=== PATIENT | male | born 1970 | race Caucasian/White ===

== ENCOUNTER 2017-04-15 16:43 | Emergency (ER) | payer MEDICARE, MEDICAID ==
--- NOTE | 2017-04-15 18:39 | ED ---
GI/ HPI - HPI Summary HPI Summary: 46M presents with inability to self-cath today. He states has renal issues so has nephrostomy tube and has to self cath. has been self cath for years. He was able to do it today this morning but this afternoon he was unable to do so and there was blood when he tried. He denies any uti symptoms such as dysuria, frequency, urgency. no abdominal pain, nausea, vomiting, or fever. has urologist at [place]. no flank pain. is not on blood thinners. He denies any history of kidney stones or having a suprapubic placed. - History of Current Complaint Chief Complaint: EDUrogenitalProblems Time Seen by Provider: 04/15/17 17:27 Stated Complaint: UNABLE TO INSERT CATHETER Pain Intensity: 0 - Additional Pertinent History Primary Care Physician: [id number] - Allergy/Home Medications Allergies/Adverse Reactions: Allergies Allergy/AdvReac Type Severity Reaction Status Date / Time Latex Allergy Intermediate Rash Verified 04/15/17 17:03 Norfloxacin Allergy Unknown Unknown Verified 04/15/17 17:03 Reaction Details Quinolones Allergy Unknown Unknown Verified 04/15/17 17:03 Reaction Details Sulfa Drugs Allergy Unknown Unknown Verified 04/15/17 17:03 Reaction Details PMH/Surg Hx/FS Hx/Imm Hx Endocrine/Hematology History: Denies: Hx Anticoagulant Therapy, Hx Diabetes, Hx Thyroid Disease, Hx Anemia Cardiovascular History: Reports: Hx Hypercholesterolemia, Hx Hypertension Denies: Hx Aneurysm, Hx Angina, Hx Angioplasty, Hx Auto Implanted Cardiovert Defib, Hx Cardiac Arrest, Hx Cardiomegaly, Hx Congenital Heart Disease, Hx Congestive Heart Failure, Hx Coronary Artery Disease, Hx Deep Vein Thrombosis, Hx Pacemaker/ICD, Other Cardiovascular Problems/Disorders Respiratory History: Reports: Hx Sleep Apnea Denies: Hx Asthma, Hx Chronic Obstructive Pulmonary Disease (COPD), Other Respiratory Problems/Disorders GI History: Denies: Hx Cirrhosis, Hx Crohn's Disease, Hx Diverticulosis, Hx Gall Bladder Disease, Hx Gastrointestinal Bleed, Hx Ulcer History: Reports: Hx Acute Renal Failure, Hx Chronic Renal Failure, Hx Renal Disease, Other Problems/Disorders - Right kidney nephrostomy, neurogenic bladder Denies: Hx Benign Prostatic Hyperplasia, Hx Dialysis, Hx Kidney Infection, Hx Kidney Stones Musculoskeletal History: Reports: Hx Back Problems - occassional back pain related to spinabifida repair Denies: Hx Arthritis, Hx Congenital Bone Abnormalities, Hx Fibromyalgia Sensory History: Denies: Hx Cataracts, Hx Contacts or Glasses, Hx Eye Injury, Hx Eye Prosthesis, Hx Glaucoma, Hx Legally Blind, Hx Macular Degeneration, Hx Vision Problem, Hx Deafness, Hx Hearing Aid, Hx Hearing Problem, Other Sensory Impairments Opthamlomology History: Denies: Hx Cataracts, Hx Contacts or Glasses, Hx Eye Injury, Hx Eye Prosthesis, Hx Glaucoma, Hx Legally Blind, Hx Macular Degeneration, Hx Vision Problem, Other Sensory Impairments Neurological History: Reports: Hx Developmental Delay, Hx Headaches, Hx Nerve Disease - spina bifida, Other Neuro Impairments/Disorders - MR, shunt, neurogenic bladder Denies: Hx Dementia, Hx Migraine, Hx Seizures, Hx Spinal Cord Injury, Hx Transient Ischemic Attacks (TIA) Psychiatric History: Reports: Hx Depression, Hx Community Mental Health Tx Denies: Hx Anxiety, Hx Attention Deficit Hyperactivity Disorder, Hx Eating Disorder, Hx Panic Disorder, Hx Post Traumatic Stress Disorder, Hx Inpatient Treatment, Hx Schizophrenia, Hx Bipolar Disorder, Hx Substance Abuse - Surgical History Surgery Procedure, Year, and Place: spina bifida repair as a child. nephrostomy. bladder sx Hx Anesthesia Reactions: No - Immunization History Date of Tetanus Vaccine: UTD Date of Influenza Vaccine: UTD Infectious Disease History: No Infectious Disease History: Denies: Hx Clostridium Difficile, Hx Hepatitis, Hx Human Immunodeficiency Virus (HIV), Hx of Known/Suspected MRSA, Hx Shingles, Hx Tuberculosis, History Other Infectious Disease, Traveled Outside the [place] in Last 30 Days - Family History Known Family History: Negative: Blood Disorder - Social History Alcohol Use: None Substance Use Type: Reports: None Hx Tobacco Use: No Smoking Status (MU): Never Smoked Tobacco Review of Systems Negative: Fever Negative: Chest Pain Negative: Shortness Of Breath Positive: other - urinary retention. Negative: dysuria, frequency All Other Systems Reviewed And Are Negative: Yes Physical Exam Triage Information Reviewed: Yes Vital Signs On Initial Exam: Initial Vitals Temp Pulse Resp BP Pulse Ox 98.5 F 97 16 135/92 96 04/15/17 17:03 04/15/17 17:03 04/15/17 17:03 04/15/17 17:03 04/15/17 17:03 Vital Signs Reviewed: Yes Appearance: Positive: Well-Appearing Skin: Positive: Warm, Dry Head/Face: Positive: Normal Head/Face Inspection Eyes: Positive: Normal, Conjunctiva Clear Respiratory/Lung Sounds: Positive: Clear to Auscultation, Breath Sounds Present Cardiovascular: Positive: Normal, RRR Abdomen Description: Positive: Nontender, Soft, Other: - nephrostomy tube left Bowel Sounds: Positive: Present Musculoskeletal: Positive: Normal Neurological: Positive: Normal Psychiatric: Positive: Normal - Kaylee Coma Scale Coma Scale Total: 15 Diagnostics - Vital Signs Vital Signs Temp Pulse Resp BP Pulse Ox 04/15/17 17:03 98.5 F 97 16 135/92 96 - Laboratory Lab Statement: Any lab studies that have been ordered have been reviewed, and results considered in the medical decision making process. GIGU Course/Dx - Course Course Of Treatment: 46M presents with inability to self-cath today. He states has renal issues so has nephrostomy tube and has to self cath. has been self cath for years. He was able to do it today this morning but this afternoon he was unable to do so and there was blood when he tried. He denies any uti symptoms such as dysuria, frequency, urgency. no abdominal pain, nausea, vomiting, or fever. has urologist at [place]. no flank pain. is not on blood thinners. on exam abdomen nontender. has left nephrostomy tube. 14 coude was placed. will have follow up with urology to have cath removed. patient understand and agrees with plan. after patient left urine came back with infection. will place on macrobid bid x7 days due to allergies. spoke with home of patient and they understand plan. - Diagnoses Differential Diagnoses - Male: Sepsis, Urinary Tract Infection, Other - urinary retention Provider Diagnoses: Acute urinary retention, UTI (urinary tract infection) Discharge - Discharge Plan Condition: Good Disposition: HOME Prescriptions: Nitrofurantoin Monohyd Macro [Macrobid] 100 mg PO BID #14 cap Patient Education Materials: Urinary Retention in Men (ED) Referrals: Sanjiv Jarvis MD [Primary Care Provider] - Additional Instructions: Catheter will likely need to be remained in for a week Follow up with your urologist for continued care. If you do not have a urologist a referral was given Return to ED if develop any new or worsening symptoms
[2017-04-15 19:09] VITALS: BP 133/89
[2017-04-15 20:14] LABS: Urine Appearance Cloudy; Urine Blood 3+ (Negative); Urine Color Yellow; Urine Ketones Negative (Negative); Urine Protein 1+(30 mg/dL) (Negative); Urine Urobilinogen Negative (Negative)
--- NOTE | 2017-04-17 18:35 | ED ---
Progress - Progress Note Progress Note: Pt's prelim urine reveals 75-100,000 morganella morganii. Final sens pending. Course/Dx - Course Course Of Treatment: 46M presents with inability to self-cath today. He states has renal issues so has nephrostomy tube and has to self cath. has been self cath for years. He was able to do it today this morning but this afternoon he was unable to do so and there was blood when he tried. He denies any uti symptoms such as dysuria, frequency, urgency. no abdominal pain, nausea, vomiting, or fever. has urologist at [place]. no flank pain. is not on blood thinners. on exam abdomen nontender. has left nephrostomy tube. 14 coude was placed. will have follow up with urology to have cath removed. patient understand and agrees with plan. after patient left urine came back with infection. will place on macrobid bid x7 days due to allergies. spoke with home of patient and they understand plan. - Diagnoses Provider Diagnoses: Acute urinary retention, UTI (urinary tract infection)
--- NOTE | 2017-04-18 08:50 | ED ---
Progress - Progress Note Progress Note: Pt's prelim urine reveals 75-100,000 morganella morganii. Final sens pending. UPDATE: pt was started on nitrofurantoin which is not effective against organism. Quinolones and bactrim are effective however these are on his allergy. Cephalosporins appear to be effective and so he may start keflex 500mg PO BID x 7 days. Spoke w/ Cheli Kent, residence counselor, at [facility]. He agrees he will stop nitrofurantoin as of tonight because morning med was already provided. He reports they have keflex 500mg available for this pt as needed as he takes it if he has a temp of 99F as well as before catheter changes. Cheli agrees to notify nursing pt may receive his first dose of keflex 500mg this morning and continue to take as directed above. He will also relay that pt needs f/u w/ PCP before completing course of tx. They will also return to ED if danger s/sx present in the meantime. Course/Dx - Course Course Of Treatment: 46M presents with inability to self-cath today. He states has renal issues so has nephrostomy tube and has to self cath. has been self cath for years. He was able to do it today this morning but this afternoon he was unable to do so and there was blood when he tried. He denies any uti symptoms such as dysuria, frequency, urgency. no abdominal pain, nausea, vomiting, or fever. has urologist at [place]. no flank pain. is not on blood thinners. on exam abdomen nontender. has left nephrostomy tube. 14 coude was placed. will have follow up with urology to have cath removed. patient understand and agrees with plan. after patient left urine came back with infection. will place on macrobid bid x7 days due to allergies. spoke with home of patient and they understand plan. - Diagnoses Provider Diagnoses: Acute urinary retention, UTI (urinary tract infection)
== END 2017-04-15 19:08 | disposition home or self-care (01) ==
LOC: ED 16:43
DX: N39.0 Urinary tract infection, site not specified (principal); R33.9 Retention of urine, unspecified
CPT/HCPCS: 81003; 81015; 87077; 87086; 87186; 99282

== ENCOUNTER 2019-07-28 10:00 | Observation (INO) ==
[2019-07-28] MEDS ORDERED: NS 0.9% 1000 ml BAG 1,000 ML IV ONE ×3 (11:30→15:17)
[2019-07-28] MEDS ORDERED: Piperacillin/Tazobac (*) 3.375 GM BAG ONE (13:25)
[2019-07-28] MEDS ORDERED: Piperacillin/Tazobac ADVAN(*) 3.375 GM in NS 0.9% 100 ml BAG 100 ML IVPB ONE (13:35)
[2019-07-28] MEDS ORDERED: Senna TAB 8.6 mg TAB PO PRN (14:40)
[2019-07-28] MEDS ORDERED: Iodixanol 320 (CONTRAST) 100 ML SDV IV ONE (19:51)
[2019-07-28 21:22] LABS: Hemoglobin 15.1 g/dL (14.0-18.0); Red Blood Count 4.77 10^6 /uL (4.18-5.48); White Blood Count 16.2 10^3/uL (3.5-10.8)
[2019-07-28 21:23] LABS: ABS Basophils 0.1 10^3/ul (0-0.2); ABS Lymphocytes 0.8 10^3/ul (1.0-4.8); ABS Monocytes 1.2 10^3/ul (0-0.8); Eosinophil % 0.2 %; Hematocrit 44 % (42-52); Lymphocyte % 5.2 %; Mean Corpuscular HGB Conc 35 g/dL (31-36); Mean Corpuscular Hemoglobin 32 pg (27-31); Mean Corpuscular Volume 92 fL (80-94); Mean Platelet Volume 9.2 fL (7.4-10.4); Platelet Count 213 10^3/uL (150-450); Red Cell Distribution Width 14 % (10-15)
[2019-07-28 21:24] LABS: Albumin 4.3 g/dL (3.2-5.2); Albumin/Globulin Ratio 1.4 (1-3); BUN/Creatinine Ratio 10.6 (8-20); Calcium 9.3 mg/dL (8.6-10.3); EGFR African American 52.5 (>60); EGFR Non-African American 43.4 (>60); Globulin 3.1 g/dL (2-4); Potassium 4.4 mmol/L (3.5-5.0); Total Protein 7.4 g/dL (6.4-8.9)
[2019-07-28 21:25] LABS: Total Bilirubin 0.9 mg/dL (0.2-1.0)
[2019-07-28 22:02] LABS: Urine Appearance Turbid; Urine Blood 1+ (Negative); Urine Color Yellow; Urine Ketones Negative (Negative); Urine Nitrite Negative (Negative); Urine Protein 1+(30 mg/dL) (Negative); Urine Urobilinogen Negative (Negative)
[2019-07-28 22:03] LABS: Urine Bacteria 2+ (Absent); Urine Bilirubin Negative (Negative); Urine Glucose Negative (Negative); Urine Red Blood Cell 1+(3-5/hpf) (Absent); Urine White Blood Cell 3+(>20/hpf) (Absent)
[2019-07-28] MEDS ORDERED: Zosyn per Pharmacy NOTE FOLLOW UP PRN (23:34)
[2019-07-28] MEDS: NS 0.9% 1000 ml BAG 1,000 ML IV SCH (23:59)
[2019-07-29 05:28] LABS: Albumin 3.6 g/dL (3.2-5.2); Albumin/Globulin Ratio 1.3 (1-3); BUN/Creatinine Ratio 11.1 (8-20); Calcium 8.4 mg/dL (8.6-10.3); EGFR African American 63.6 (>60); EGFR Non-African American 52.6 (>60); Globulin 2.7 g/dL (2-4); Potassium 3.5 mmol/L (3.5-5.0); Total Bilirubin 0.9 mg/dL (0.2-1.0); Total Protein 6.3 g/dL (6.4-8.9)
[2019-07-29 05:56] LABS: ABS Basophils 0.1 10^3/ul (0-0.2); ABS Eosinophils 0.1 10^3/ul (0-0.6); ABS Lymphocytes 1.3 10^3/ul (1.0-4.8); Eosinophil % 0.6 %; Hematocrit 40 % (42-52); Hemoglobin 14.1 g/dL (14.0-18.0); Lymphocyte % 9.3 %; Mean Corpuscular HGB Conc 35 g/dL (31-36); Mean Corpuscular Hemoglobin 32 pg (27-31); Mean Corpuscular Volume 92 fL (80-94); Mean Platelet Volume 8.9 fL (7.4-10.4); Platelet Count 179 10^3/uL (150-450); Red Blood Count 4.36 10^6 /uL (4.18-5.48); Red Cell Distribution Width 14 % (10-15)
[2019-07-29] MEDS: ZOSYN 3.375 GM Q8H per EXTENDED INFUSION IV SCH ×3 (08:55→16:05)
[2019-07-29 11:40] LABS: Magnesium 1.8 mg/dL (1.9-2.7)
[2019-07-29] MEDS ORDERED: Magnesium Sulfate IV 1GM/100ML 1 GM/100 ML BAG IV ONE (11:49)
[2019-07-29] MEDS ORDERED: NS 0.9% 1000 ml BAG 1,000 ML IV ONE (12:12)
[2019-07-29] MEDS: Enoxaparin 40 MG/0.4 ML SYR(*) SUBCUT SCH (13:47)
[2019-07-29] MEDS: NS 0.9% 1000 ml BAG 1,000 ML IV SCH (13:47)
[2019-07-29] MEDS: CMC:Simvastatin 10 mg TAB (NF) PO SCH (20:46)
[2019-07-29] MEDS ORDERED: Potassium Citrate 10 meq T(NF) PO SCH (21:00)
[2019-07-30] MEDS: ZOSYN 3.375 GM Q8H per EXTENDED INFUSION IV SCH ×3 (00:33→16:10)
[2019-07-30] MEDS: Enoxaparin 40 MG/0.4 ML SYR(*) SUBCUT SCH (12:28)
[2019-07-30] MEDS: CMC:Simvastatin 10 mg TAB (NF) PO SCH (20:13)
[2019-07-31] MEDS: ZOSYN 3.375 GM Q8H per EXTENDED INFUSION IV SCH ×2 (00:03→08:03)
[2019-07-31 07:28] LABS: Hematocrit 37 % (42-52); Hemoglobin 12.7 g/dL (14.0-18.0); Mean Corpuscular HGB Conc 35 g/dL (31-36); Mean Corpuscular Hemoglobin 32 pg (27-31); Mean Corpuscular Volume 92 fL (80-94); Mean Platelet Volume 9.3 fL (7.4-10.4); Platelet Count 203 10^3/uL (150-450); Red Blood Count 4.02 10^6 /uL (4.18-5.48); Red Cell Distribution Width 14 % (10-15); White Blood Count 5.4 10^3/uL (3.5-10.8)
[2019-07-31 07:49] LABS: BUN/Creatinine Ratio 8.3 (8-20); Calcium 8.6 mg/dL (8.6-10.3); EGFR African American 63.1 (>60); EGFR Non-African American 52.2 (>60); Potassium 3.8 mmol/L (3.5-5.0)
[2019-07-31 12:00] VITALS: BP 125/74
== END 2019-07-31 15:25 | disposition home or self-care (01) | DRG 872 ==
LOC: ED 17:11 → MEDTELE 17:11 → OBSVTOIN 21:33 → INTOOBSV 21:33
PROVIDERS: ADMIT Hospitalist; ATTEND Internal Medicine

== ENCOUNTER 2020-09-05 18:41 | Observation (INO) ==
[2020-09-05 21:20] LABS: Urine Appearance Turbid; Urine Bilirubin Negative (Negative); Urine Blood 1+ (Negative); Urine Color Yellow; Urine Glucose Negative (Negative); Urine Ketones Negative (Negative); Urine Nitrite Negative (Negative); Urine Protein 3+(>=500 mg/dL) (Negative); Urine Specific Gravity 1.011 (1.002-1.030); Urine Urobilinogen Negative (Negative)
[2020-09-05 21:23] LABS: Urine Bacteria 1+ (Absent); Urine Red Blood Cell 2+(6-10/hpf) (Absent); Urine Squamous Epithelial Cell Present (Absent); Urine White Blood Cell 2+(11-20/hpf) (Absent)
[2020-09-05] MEDS ORDERED: cefTRIAXone 1 gm/50 mL NS BAG 1 GM/50 ML BAG IV ONE (21:45)
[2020-09-05 23:48] LABS: ABS Basophils 0.1 10^3/ul (0-0.2); ABS Eosinophils 0.2 10^3/ul (0-0.6); ABS Lymphocytes 1.6 10^3/ul (1.0-4.8); ABS Monocytes 0.7 10^3/ul (0-0.8); ABS Neutrophils 5.6 10^3/ul (1.5-7.7); Eosinophil % 2.3 %; Hematocrit 46 % (42-52); Hemoglobin 15.5 g/dL (14.0-18.0); Mean Corpuscular HGB Conc 34 g/dL (31-36); Mean Corpuscular Hemoglobin 32 pg (27-31); Mean Corpuscular Volume 95 fL (80-94); Mean Platelet Volume 9.2 fL (7.4-10.4); Platelet Count 228 10^3/uL (150-450); Red Blood Count 4.82 10^6 /uL (4.18-5.48); Red Cell Distribution Width 14 % (10-15); White Blood Count 8.2 10^3/uL (3.5-10.8)
[2020-09-05 23:59] LABS: Albumin 4.1 g/dL (3.2-5.2); Calcium 9.1 mg/dL (8.6-10.3); Total Bilirubin 0.6 mg/dL (0.2-1.0)
[2020-09-06 00:05] LABS: Albumin/Globulin Ratio 1.4 (1-3); C Reactive Protein 2.73 mg/L (<8.01); EGFR African American 49.3 (>60); EGFR Non-African American 40.7 (>60); Total Protein 7.1 g/dL (6.4-8.9)
[2020-09-06] MEDS: NS 0.9% 1000 ml BAG 1,000 ML IV SCH ×2 (00:07→03:23)
[2020-09-06] MEDS ORDERED: Magnesium Hydroxide LIQ 30 ML UDC PO PRN (04:03)
[2020-09-06] MEDS ORDERED: Enoxaparin 40 MG/0.4 ML SYR SUBCUT SCH (05:00)
[2020-09-06 11:18] VITALS: BP 119/77
[2020-09-06] MEDS ORDERED: cefTRIAXone 1 gm/50 mL NS BAG 1 GM/50 ML BAG IVPB SCH (21:00)
== END 2020-09-06 13:22 | disposition home or self-care (01) ==
LOC: ED 18:41 → MEDTELE 09-06 04:03 → INTOOBSV 09-06 04:03 → MEDTELE 09-06 07:58
PROVIDERS: ADMIT Internal Medicine; ATTEND Student in an Organized Health Care Education/Training Program

== ENCOUNTER 2023-10-09 20:52 | Inpatient (IN) ==
[2023-10-09 21:40] LABS: ABS Basophils 0.1 10^3/uL (0.0-0.1); ABS Lymphocytes 0.5 10^3/uL (1.0-4.8); ABS Monocytes 0.9 10^3/uL (0.0-1.1); ABS Neutrophils 11.4 10^3/uL (1.5-7.6); Eosinophil % 0.1 %; Hematocrit 39.1 % (38-53); Hemoglobin 13.3 g/dL (13.2-16.3); Lymphocyte % 4.1 %; Mean Corpuscular Hemoglobin 31.4 pg (27-33); Mean Corpuscular Hgb Conc 33.9 g/dL (31-36); Mean Corpuscular Volume 92.5 fL (80-97); Mean Platelet Volume 9.1 fL (7.5-11.2); Platelet Count 145 10^3/uL (150-450); Red Blood Count 4.23 10^6/uL (4.06-5.63); Red Cell Distribution Width 15.3 % (12-17); White Blood Count 12.9 10^3/uL (3.6-10.2)
[2023-10-09] MEDS: Lactated Ringers 1000 ml BAG 1,000 ML IV ONE (21:44)
[2023-10-09 21:54] LABS: Urine Appearance Extra Turbid; Urine Bilirubin Negative (Negative); Urine Blood 2+ (Negative); Urine Glucose Negative (Negative); Urine Ketones Negative (Negative); Urine Nitrite 2+ (Negative); Urine Protein 1+ (>=30 mg/dL) (Negative); Urine Urobilinogen Negative (Negative); Urine pH 6.5 (5.0-8.0)
[2023-10-09] MEDS: Piperacillin/Tazobac 3.375 BAG 3.375 GM/100 ML BAG IV ONE (21:54)
[2023-10-09] MEDS: Lactated Ringers SEPSIS* BAG 2,400 ML IV ONE (21:55)
[2023-10-09 22:00] LABS: Urine Bacteria 1+ /HPF (Absent); Urine Red Blood Cell 3+(>10/hpf) /HPF (0-Trace); Urine Squamous Epithelial Cell Present /HPF (Absent); Urine White Blood Cell 3+(>20/hpf) /HPF (0-Trace)
[2023-10-09 22:01] LABS: INR 1.29 (0.83-1.13)
[2023-10-09 22:03] LABS: Urine Color Yellow
[2023-10-09 22:25] LABS: Albumin 4.1 g/dL (3.2-5.2); Albumin/Globulin Ratio 1.6 (1-3); C Reactive Protein 172.9 mg/L (<8.01); Calcium 8.9 mg/dL (8.6-10.3); Globulin 2.5 g/dL (2-4); Potassium 4.1 mmol/L (3.5-5.0); Total Protein 6.6 g/dL (6.4-8.9); eGFR CKD-EPI 39.7 (>60)
[2023-10-09 22:31] LABS: Urine Appearance Extra Turbid; Urine Bilirubin Negative (Negative); Urine Blood 2+ (Negative); Urine Glucose Negative (Negative); Urine Ketones Negative (Negative); Urine Nitrite Negative (Negative); Urine Protein 2+ (>=100 mg/dL) (Negative); Urine Specific Gravity 1.009 (1.002-1.030); Urine Urobilinogen Negative (Negative); Urine pH 7.5 (5.0-8.0)
[2023-10-09 22:42] LABS: Urine Bacteria 3+ /HPF (Absent); Urine Red Blood Cell 3+(>10/hpf) /HPF (0-Trace); Urine White Blood Cell 3+(>20/hpf) /HPF (0-Trace)
[2023-10-09 22:43] LABS: Urine Color Yellow
[2023-10-09] MEDS: Vancomycin 1,500 MG in NS 0.9% 250 ml 250 ML IVPB ONE (22:47)
[2023-10-09 22:49] LABS: High Sensitivity Troponin 1 Hr 9 pg/mL (<20)
[2023-10-09] MEDS: Iodixanol (CONTRAST) 320 MG/ML 100 ML SDV IV ONE (23:14)
[2023-10-10] MEDS: ZOSYN 3.375 GM Q8H per EXTENDED INFUSION IV SCH (05:23)
[2023-10-10] MEDS ORDERED: Zosyn per Pharmacy NOTE FOLLOW UP SCH (06:00)
[2023-10-10 06:17] LABS: ABS Lymphocytes 0.7 10^3/uL (1.0-4.8); ABS Monocytes 0.8 10^3/uL (0.0-1.1); ABS Neutrophils 10.7 10^3/uL (1.5-7.6); ABS Nucleated RBC 0.01 10^3/ul; Eosinophil % 0.1 %; Hematocrit 36.5 % (38-53); Hemoglobin 12.6 g/dL (13.2-16.3); Lymphocyte % 6.1 %; Mean Corpuscular Hgb Conc 34.5 g/dL (31-36); Mean Corpuscular Volume 92.7 fL (80-97); Mean Platelet Volume 9.1 fL (7.5-11.2); Platelet Count 112 10^3/uL (150-450); Red Blood Count 3.94 10^6/uL (4.06-5.63); White Blood Count 12.3 10^3/uL (3.6-10.2)
[2023-10-10 06:47] LABS: Calcium 8.5 mg/dL (8.6-10.3); Creatinine, Serum 1.91 mg/dL (0.67-1.17); Magnesium 1.7 mg/dL (1.9-2.7); eGFR CKD-EPI 41.9 (>60)
[2023-10-10] MEDS: Magnesium Sulfate 2 gm BAG 2 GM/50 ML BAG IVPB ONE (09:19)
[2023-10-10] MEDS ORDERED: cefTRIAXone 2 gm/50 mL D5W 2 GM/50 ML BAG IV SCH (10:00)
[2023-10-10] MEDS: cefTRIAXone 2 gm/50 mL D5W 2 GM/50 ML BAG IV SCH (11:00)
[2023-10-10] MEDS: Lactated Ringers 1000 ml BAG 1,000 ML IV SCH (18:18)
[2023-10-10] MEDS: Heparin 5000 UNITS/ML 1 mL VIAL SUBCUT SCH (21:32)
[2023-10-11] MEDS: Acetaminophen IV 1 GM/100ML 1,000 MG/100 ML BAG IV ONE (00:22)
[2023-10-11 06:26] LABS: ABS Eosinophils 0.1 10^3/uL (0.0-0.5); ABS Lymphocytes 0.5 10^3/uL (1.0-4.8); ABS Monocytes 0.6 10^3/uL (0.0-1.1); ABS Neutrophils 8.1 10^3/uL (1.5-7.6); Hematocrit 37.8 % (38-53); Hemoglobin 12.8 g/dL (13.2-16.3); Lymphocyte % 5.3 %; Mean Corpuscular Hemoglobin 31.2 pg (27-33); Mean Corpuscular Hgb Conc 33.7 g/dL (31-36); Mean Corpuscular Volume 92.7 fL (80-97); Mean Platelet Volume 9.2 fL (7.5-11.2); Platelet Count 111 10^3/uL (150-450); Red Blood Count 4.08 10^6/uL (4.06-5.63); Red Cell Distribution Width 15.3 % (12-17); White Blood Count 9.3 10^3/uL (3.6-10.2)
[2023-10-11 07:09] LABS: Calcium 8.1 mg/dL (8.6-10.3); Creatinine, Serum 1.82 mg/dL (0.67-1.17); Magnesium 1.9 mg/dL (1.9-2.7); Potassium 3.8 mmol/L (3.5-5.0); eGFR CKD-EPI 44.4 (>60)
[2023-10-12 05:33] LABS: ABS Eosinophils 0.2 10^3/uL (0.0-0.5); ABS Lymphocytes 1.1 10^3/uL (1.0-4.8); ABS Monocytes 0.8 10^3/uL (0.0-1.1); ABS Neutrophils 5.3 10^3/uL (1.5-7.6); Hematocrit 37.3 % (38-53); Hemoglobin 12.8 g/dL (13.2-16.3); Lymphocyte % 14.2 %; Mean Corpuscular Hemoglobin 31.8 pg (27-33); Mean Corpuscular Hgb Conc 34.2 g/dL (31-36); Mean Corpuscular Volume 92.9 fL (80-97); Platelet Count 126 10^3/uL (150-450); Red Blood Count 4.02 10^6/uL (4.06-5.63); Red Cell Distribution Width 15.3 % (12-17); White Blood Count 7.4 10^3/uL (3.6-10.2)
[2023-10-12 06:15] LABS: Calcium 8.4 mg/dL (8.6-10.3); Creatinine, Serum 1.76 mg/dL (0.67-1.17); Phosphorus 3.4 mg/dL (2.5-5.0); Potassium 4.1 mmol/L (3.5-5.0); eGFR CKD-EPI 46.2 (>60)
[2023-10-12] MEDS ORDERED: Senna TAB 8.6 mg TAB PO PRN (07:02)
[2023-10-12] MEDS: cefTRIAXone 2 gm/50 mL D5W 2 GM/50 ML BAG IV SCH (09:21)
[2023-10-12] MEDS: Heparin 5000 UNITS/ML 1 mL VIAL SUBCUT SCH (10:17)
[2023-10-12] MEDS: fentaNYL 100 mcg/2 ml 50 MCG/ML VIAL ONE (17:14)
[2023-10-12 18:14] LABS: Urine Appearance Clear; Urine Bacteria Absent /HPF (Absent); Urine Bilirubin Negative (Negative); Urine Blood 1+ (Negative); Urine Color Light-Yellow; Urine Glucose Negative (Negative); Urine Ketones Negative (Negative); Urine Nitrite Negative (Negative); Urine Protein 1+ (>=30 mg/dL) (Negative); Urine Red Blood Cell 3+(>10/hpf) /HPF (0-Trace); Urine Specific Gravity >1.050 (1.002-1.030); Urine Squamous Epithelial Cell Present /HPF (Absent); Urine Urobilinogen Negative (Negative); Urine White Blood Cell 1+(6-10/hpf) /HPF (0-Trace)
[2023-10-13 07:18] LABS: ABS Basophils 0.1 10^3/uL (0.0-0.1); ABS Eosinophils 0.2 10^3/uL (0.0-0.5); ABS Lymphocytes 0.9 10^3/uL (1.0-4.8); ABS Monocytes 0.6 10^3/uL (0.0-1.1); ABS Neutrophils 4.3 10^3/uL (1.5-7.6); ABS Nucleated RBC 0.01 10^3/ul; Eosinophil % 3.3 %; Hematocrit 37.4 % (38-53); Hemoglobin 12.7 g/dL (13.2-16.3); Lymphocyte % 14.6 %; Mean Corpuscular Hemoglobin 31.3 pg (27-33); Mean Corpuscular Hgb Conc 34.1 g/dL (31-36); Mean Corpuscular Volume 91.8 fL (80-97); Nucleated Red Blood Cells % 0.1 %/100WBC (0.0-0.8); Platelet Count 151 10^3/uL (150-450); Red Blood Count 4.07 10^6/uL (4.06-5.63); White Blood Count 6.1 10^3/uL (3.6-10.2)
[2023-10-13 07:45] LABS: Calcium 8.6 mg/dL (8.6-10.3); Creatinine, Serum 1.66 mg/dL (0.67-1.17); Magnesium 1.9 mg/dL (1.9-2.7); Phosphorus 3.1 mg/dL (2.5-5.0); Potassium 3.9 mmol/L (3.5-5.0); eGFR CKD-EPI 49.6 (>60)
[2023-10-13 14:01] VITALS: BP 116/86
== END 2023-10-13 16:55 | disposition home health service (06) | DRG 872 ==
LOC: ED 20:52 → EDHOLD 20:52 → SUATTDRO 10-10 02:04 → SSU 10-11 10:06
PROVIDERS: ADMIT Internal Medicine; ATTEND Hospitalist

== ENCOUNTER 2023-12-05 09:01 | Observation (INO) ==
[2023-12-05 10:15] LABS: ABS Basophils 0.1 10^3/uL (0.0-0.1); ABS Lymphocytes 0.8 10^3/uL (1.0-4.8); ABS Monocytes 0.8 10^3/uL (0.0-1.1); ABS Nucleated RBC 0.01 10^3/ul; Eosinophil % 0.3 %; Hematocrit 42.4 % (38-53); Hemoglobin 13.9 g/dL (13.2-16.3); Lymphocyte % 6.6 %; Mean Corpuscular Hemoglobin 30.6 pg (27-33); Mean Corpuscular Hgb Conc 32.8 g/dL (31-36); Mean Corpuscular Volume 93.2 fL (80-97); Mean Platelet Volume 9.1 fL (7.5-11.2); Platelet Count 238 10^3/uL (150-450); Red Blood Count 4.55 10^6/uL (4.06-5.63); Red Cell Distribution Width 16.2 % (12-17); White Blood Count 12.7 10^3/uL (3.6-10.2)
[2023-12-05 10:33] LABS: Calcium 9.2 mg/dL (8.6-10.3); Creatinine, Serum 1.94 mg/dL (0.67-1.17); Potassium 5.1 mmol/L (3.5-5.0); eGFR CKD-EPI 40.9 (>60)
[2023-12-05] MEDS: Acetaminophen IV 1 GM/100ML 1,000 MG/100 ML BAG IV ONE ×2 (11:42→18:44)
[2023-12-05] MEDS: Vancomycin 1,500 MG in NS 0.9% 250 ml 250 ML IVPB ONE (18:36)
[2023-12-05] MEDS: cefTRIAXone 1 gm/50 mL D5W 1 GM/50 ML BAG IV ONE (18:44)
[2023-12-05] MEDS: Lactated Ringers 1000 ml BAG 1,000 ML IV ONE (18:45)
[2023-12-05] MEDS: fentaNYL 100 mcg/2 ml 50 MCG/ML VIAL ONE (18:47)
[2023-12-05 19:16] LABS: Urine Appearance Extra Turbid; Urine Bilirubin Negative (Negative); Urine Blood 2+ (Negative); Urine Glucose Negative (Negative); Urine Ketones Negative (Negative); Urine Nitrite Negative (Negative); Urine Protein 2+ (>=100 mg/dL) (Negative); Urine Specific Gravity 1.027 (1.002-1.030); Urine Urobilinogen Negative (Negative)
[2023-12-05 19:17] LABS: Urine Bacteria Absent /HPF (Absent); Urine Red Blood Cell 2+(6-10/hpf) /HPF (0-Trace); Urine White Blood Cell 3+(>20/hpf) /HPF (0-Trace)
[2023-12-05 19:18] LABS: Urine Color Light-Yellow
[2023-12-05] MEDS: NS 0.9% 1000 ml BAG 1,000 ML IV ONE (20:52)
[2023-12-05] MEDS: NS 0.9% 1000 ml BAG 1,000 ML IV SCH ×2 (22:15→23:35)
[2023-12-05 22:34] LABS: Hematocrit 44.3 % (38-53); Hemoglobin 14.6 g/dL (13.2-16.3); Mean Corpuscular Hemoglobin 31.1 pg (27-33); Mean Corpuscular Hgb Conc 33.1 g/dL (31-36); Mean Corpuscular Volume 94.1 fL (80-97); Mean Platelet Volume 9.6 fL (7.5-11.2); Platelet Count 264 10^3/uL (150-450); Red Cell Distribution Width 16.1 % (12-17); White Blood Count 16.1 10^3/uL (3.6-10.2)
[2023-12-05 22:40] LABS: ALT 34 U/L (7-52); AST 21 U/L (13-39); Albumin 4.4 g/dL (3.2-5.2); Albumin/Globulin Ratio 1.3 (1-3); Alkaline Phosphatase 74 U/L (35-149); Anion Gap 11 mmol/L (2-16); Blood Urea Nitrogen 25 mg/dL (6-24); CO2 Carbon Dioxide 21 mmol/L (22-32); Calcium 9.7 mg/dL (8.6-10.3); Chloride 108 mmol/L (101-111); Creatinine, Serum 2.26 mg/dL (0.67-1.17); Globulin 3.3 g/dL (2-4); Glucose 131 mg/dL (70-100); Potassium 5.3 mmol/L (3.5-5.0); Sodium 140 mmol/L (135-145); Total Bilirubin 0.9 mg/dL (0.2-1.0); Total Protein 7.7 g/dL (6.4-8.9)
[2023-12-05 22:43] LABS: CRP High Sensitivity > 80.00 mg/L (<2.00)
[2023-12-05] MEDS ORDERED: Enoxaparin 40 MG/0.4 ML SYR SUBCUT SCH (23:00)
[2023-12-06 00:46] LABS: Activated Partial Thrombo Time 30.5 seconds (26.0-38.0); INR 1.32 (0.85-1.14)
[2023-12-06] MEDS: Cefepime 2 GM in Dextrose 2 GM/50 ML BAG IV SCH (02:03)
[2023-12-06] MEDS: Heparin 5000 UNITS/ML 1 mL VIAL SUBCUT SCH (05:53)
[2023-12-06 10:31] LABS: ABS Basophils 0.1 10^3/uL (0.0-0.1); ABS Monocytes 0.4 10^3/uL (0.0-1.1); ABS Neutrophils 12.3 10^3/uL (1.5-7.6); ABS Nucleated RBC 0.01 10^3/ul; Eosinophil % 0.2 %; Hemoglobin 12.7 g/dL (13.2-16.3); Lymphocyte % 6.9 %; Mean Corpuscular Hemoglobin 31.5 pg (27-33); Mean Corpuscular Hgb Conc 33.3 g/dL (31-36); Mean Corpuscular Volume 94.8 fL (80-97); Mean Platelet Volume 8.9 fL (7.5-11.2); Platelet Count 223 10^3/uL (150-450); Red Blood Count 4.01 10^6/uL (4.06-5.63); Red Cell Distribution Width 16.2 % (12-17); White Blood Count 13.8 10^3/uL (3.6-10.2)
[2023-12-06 10:52] VITALS: BP 115/94
[2023-12-06 11:15] LABS: Calcium 8.2 mg/dL (8.6-10.3); Creatinine, Serum 1.67 mg/dL (0.67-1.17); Potassium 4.1 mmol/L (3.5-5.0); eGFR CKD-EPI 48.9 (>60)
[2023-12-06] MEDS ORDERED: Simvastatin 10 mg TAB (NF) PO SCH (21:00)
== END 2023-12-06 13:50 | disposition home or self-care (01) ==
LOC: EDHOLD 09:01 → ED 09:01 → SUATTDRO 18:51 → SSU 20:49
PROVIDERS: ADMIT Student in an Organized Health Care Education/Training Program; ATTEND Internal Medicine

== ENCOUNTER 2024-04-26 16:54 | Observation (INO) ==
[2024-04-26] MEDS: Lactated Ringers SEPSIS* BAG 2,540 ML IV ONE (18:53)
[2024-04-26 19:15] LABS: Activated Partial Thrombo Time 28.8 seconds (26.0-38.0); INR 1.1 (0.85-1.14)
[2024-04-26 19:44] LABS: Albumin 4.1 g/dL (3.5-5.7); Albumin/Globulin Ratio 1.6 (1-3); C Reactive Protein 35.24 mg/L (<8.01); Creatinine, Serum 1.76 mg/dL (0.67-1.17); Globulin 2.6 g/dL (2-4); Potassium 4.6 mmol/L (3.5-5.0); Total Bilirubin 0.7 mg/dL (0.2-1.0); Total Protein 6.7 g/dL (6.4-8.9)
[2024-04-26 20:07] LABS: ABS Basophils 0.1 10^3/uL (0.0-0.1); ABS Eosinophils 0.2 10^3/uL (0.0-0.5); ABS Lymphocytes 0.9 10^3/uL (1.0-4.8); ABS Monocytes 0.7 10^3/uL (0.0-1.1); ABS Neutrophils 10.3 10^3/uL (1.5-7.6); ABS Nucleated RBC 0.01 10^3/ul; Anisocytosis 1+; Eosinophil % 1.3 %; Hematocrit 41.8 % (38-53); Hemoglobin 14.1 g/dL (13.2-16.3); Lymphocyte % 7.7 %; Mean Corpuscular Hemoglobin 32.7 pg (27-33); Mean Corpuscular Hgb Conc 33.7 g/dL (31-36); Mean Corpuscular Volume 96.8 fL (80-97); Platelet Count Platelets clumped. 10^3/uL (150-450); Polychromasia 1+; Red Blood Count 4.32 10^6/uL (4.06-5.63); Red Cell Distribution Width 15.6 % (12-17); White Blood Count 12.1 10^3/uL (3.6-10.2)
[2024-04-26 20:34] LABS: Urine Appearance Turbid; Urine Bilirubin Negative (Negative); Urine Blood 1+ (Negative); Urine Color Yellow; Urine Glucose Negative (Negative); Urine Ketones Negative (Negative); Urine Nitrite Negative (Negative); Urine Protein 1+ (>=30 mg/dL) (Negative); Urine Urobilinogen Negative (Negative); Urine pH 7.5 (5.0-8.0)
[2024-04-26 20:55] LABS: Budding Yeast Present /HPF (Absent); Urine Bacteria 1+ /HPF (Absent); Urine Red Blood Cell 3+(>10/hpf) /HPF (0-Trace); Urine White Blood Cell 3+(>20/hpf) /HPF (0-Trace)
[2024-04-26 21:18] LABS: High Sensitivity Troponin 1 Hr 3 pg/mL (<20)
[2024-04-26] MEDS: Iodixanol 320 (CONTRAST) 100 ML SDV IV ONE (22:18)
[2024-04-26] MEDS: cefTRIAXone 1 gm/50 mL D5W 1 GM/50 ML BAG IV ONE (22:28)
[2024-04-27 06:54] LABS: ABS Eosinophils 0.1 10^3/uL (0.0-0.5); ABS Lymphocytes 0.9 10^3/uL (1.0-4.8); ABS Monocytes 0.7 10^3/uL (0.0-1.1); ABS Neutrophils 7.4 10^3/uL (1.5-7.6); Eosinophil % 0.9 %; Hematocrit 37.8 % (38-53); Hemoglobin 13.1 g/dL (13.2-16.3); Lymphocyte % 9.9 %; Mean Corpuscular Hgb Conc 34.6 g/dL (31-36); Mean Corpuscular Volume 95.3 fL (80-97); Mean Platelet Volume 8.8 fL (7.5-11.2); Nucleated Red Blood Cells % 0.1 %/100WBC (0.0-0.8); Platelet Count 175 10^3/uL (150-450); Red Blood Count 3.97 10^6/uL (4.06-5.63); Red Cell Distribution Width 15.8 % (12-17); White Blood Count 9.1 10^3/uL (3.6-10.2)
[2024-04-27] MEDS ORDERED: Zosyn per Pharmacy NOTE FOLLOW UP SCH (07:00)
[2024-04-27 07:09] LABS: Calcium 8.4 mg/dL (8.6-10.3); Creatinine, Serum 1.63 mg/dL (0.67-1.17); Magnesium 1.6 mg/dL (1.9-2.7); Phosphorus 2.7 mg/dL (2.5-5.0); Potassium 4.3 mmol/L (3.5-5.0); eGFR CKD-EPI 50.4 (>60)
[2024-04-27] MEDS: Piperacillin/Tazobac 3.375 BAG 3.375 GM/100 ML BAG IV ONE (07:56)
[2024-04-27] MEDS: Magnesium Sulfate 2 gm BAG 2 GM/50 ML BAG IVPB ONE (09:12)
[2024-04-27] MEDS: Enoxaparin 40 MG/0.4 ML SYR SUBCUT SCH (09:18)
[2024-04-27] MEDS: ZOSYN 3.375 GM Q8H per EXTENDED INFUSION IV SCH ×2 (15:01→22:44)
[2024-04-27 16:12] LABS: Urine Appearance Clear; Urine Bacteria Absent /HPF (Absent); Urine Bilirubin Negative (Negative); Urine Blood Trace (Negative); Urine Color Light-Yellow; Urine Glucose Negative (Negative); Urine Ketones Negative (Negative); Urine Nitrite Negative (Negative); Urine Protein 1+ (>=30 mg/dL) (Negative); Urine Red Blood Cell 3+(>10/hpf) /HPF (0-Trace); Urine Specific Gravity >1.050 (1.002-1.030); Urine Squamous Epithelial Cell Present /HPF (Absent); Urine Urobilinogen Negative (Negative); Urine White Blood Cell 3+(>20/hpf) /HPF (0-Trace); Urine pH 7.5 (5.0-8.0)
[2024-04-27] MEDS: fentaNYL 100 mcg/2 ml 50 MCG/ML VIAL ONE (17:22)
[2024-04-27] MEDS: CMCS: Simvastatin 10 mg TAB (NF) PO SCH (19:45)
[2024-04-28 06:02] LABS: ABS Eosinophils 0.2 10^3/uL (0.0-0.5); ABS Lymphocytes 1.3 10^3/uL (1.0-4.8); ABS Monocytes 0.6 10^3/uL (0.0-1.1); ABS Neutrophils 4.9 10^3/uL (1.5-7.6); Eosinophil % 2.8 %; Hematocrit 37.6 % (38-53); Hemoglobin 12.6 g/dL (13.2-16.3); Lymphocyte % 18.7 %; Mean Corpuscular Hemoglobin 32.3 pg (27-33); Mean Corpuscular Hgb Conc 33.7 g/dL (31-36); Mean Corpuscular Volume 96.1 fL (80-97); Mean Platelet Volume 8.8 fL (7.5-11.2); Nucleated Red Blood Cells % 0.1 %/100WBC (0.0-0.8); Platelet Count 185 10^3/uL (150-450); Red Blood Count 3.91 10^6/uL (4.06-5.63)
[2024-04-28 06:25] LABS: Calcium 8.3 mg/dL (8.6-10.3); Creatinine, Serum 1.73 mg/dL (0.67-1.17); Magnesium 2.1 mg/dL (1.9-2.7); Potassium 4.5 mmol/L (3.5-5.0); eGFR CKD-EPI 46.9 (>60)
[2024-04-28 09:37] VITALS: BP 109/77
== END 2024-04-28 11:50 | disposition home or self-care (01) ==
LOC: ED 16:54 → EDHOLD 16:54 → MED 04-27 04:09
PROVIDERS: ADMIT Student in an Organized Health Care Education/Training Program; ATTEND Hospitalist